=== PATIENT | male | born 1965 | race Caucasian/White ===

== ENCOUNTER 2016-09-21 13:22 | Outpatient (CLI) | payer MEDICARE, MEDICAID | END 2016-09-21 13:23 | disposition home or self-care (01) | DX: R50.9 Fever, unspecified (principal); R10.9 Unspecified abdominal pain ==

== ENCOUNTER 2016-09-23 11:36 | Outpatient (CLI) | payer MEDICARE, MEDICAID | END 2016-09-23 11:37 | disposition home or self-care (01) | DX: I10 Essential (primary) hypertension (principal); Z79.899 Other long term (current) drug therapy; Z11.4 Encounter for screening for human immunodeficiency virus [HIV]; E78.6 Lipoprotein deficiency; R61 Generalized hyperhidrosis; R50.9 Fever, unspecified | CPT/HCPCS: 36415; 80053; 80061; 84443; 85025; 87040; G0475 ==

== ENCOUNTER 2016-12-31 18:55 | Outpatient (CLI) | payer MEDICARE, MEDICAID | END 2016-12-31 18:56 | disposition critical access hospital (66) | LOC: EMS 18:55 | PROVIDERS: ATTEND Surgery | DX: S89.92XA Unspecified injury of left lower leg, initial encounter (principal); W01.10XA Fall on same level from slipping, tripping and stumbling with subsequent striking against unspecified object, initial encounter; Z91.81 History of falling | CPT/HCPCS: A0425; A0429 ==

== ENCOUNTER 2016-12-31 19:01 | Emergency (ER) | payer MEDICARE, MEDICAID ==
[2016-12-31 19:11] VITALS: BP 161/80
--- NOTE | 2016-12-31 19:51 | ED Physician Documentation ---
PD HPI BACK INJURY - Stated complaint Stated Complaint: GLF/BACK PN - History obtained from History obtained from: Patient, EMS - History of Present Illness Location: Left, Lower Type of injury: Fall Where injury occurred: Home Timing - onset: How many hours ago (1) Timing - duration: Hours (1) Timing - details: Abrupt onset Pain level max: 8 Pain level now: 0 Quality: Pain Improved by: Rest Worsened by: Moving, Palpating Associated symptoms: Other (tingling to the LLE) Similar symptoms before: Diagnosis (spina bifida) Recently seen: Not recently seen - Additional information Additional information: Patient states that he tripped and fell in the bathroom at home. Is normally unsteady on his feet. Does not use any assistive walking devices. States that the left leg was pinned underneath his buttocks and has been unable to fully extend the leg since that time. Review of Systems Constitutional: denies: Fever, Chills Skin: denies: Rash Musculoskeletal: denies: Neck pain, Back pain Neurologic: reports: Numbness (Initially in the left lower leg, now resolved). denies: Focal weakness, Confused, Altered mental status, Headache, Head injury, LOC PD PAST MEDICAL HISTORY - Past Medical History Past Medical History: Yes Cardiovascular: Hypertension Respiratory: None Neuro: None Endocrine/Autoimmune: None GI: None : Retention HEENT: None Psych: None Musculoskeletal: None, Other Derm: None Other Past Medical History: Spinabifi - Past Surgical History Past Surgical History: Yes HEENT: Tonsil/Adenoidectomy - Present Medications Home Medications: Ambulatory Orders Medication Instructions Recorded Confirmed Lisinopril 5 mg PO DAILY 02/26/16 02/26/16 HYDROcod/ACETAM 5/325 [[place] 5/325] 1 tab PO Q4HR PRN #14 tablet 02/29/16 - Allergies Allergies/Adverse Reactions: Allergies Allergy/AdvReac Type Severity Reaction Status Date / Time amoxicillin trihydrate * Allergy Unknown unknown Verified 02/26/16 01:53 [From Augmentin] bisacodyl Allergy Unknown unknown Verified 02/26/16 01:53 clarithromycin [From Biaxin] Allergy Unknown unknown Verified 02/26/16 01:53 levofloxacin [From Levaquin] Allergy Unknown unknown Verified 02/26/16 01:53 potassium clavulanate * Allergy Unknown unknown Verified 02/26/16 01:53 [From Augmentin] - Social History Does the pt smoke?: No Smoking Status: Never smoker Does the pt drink ETOH?: Yes Does the pt have substance abuse?: No - Immunizations Immunizations are current?: No Immunizations: Other immun not current - POLST Patient has POLST: No PD ED PE NORMAL - Vitals Vital signs reviewed: Yes - General General: Alert and oriented X 3, No acute distress, Well developed/nourished - HEENT HEENT: Atraumatic, PERRL, Moist mucous membranes, Pharynx benign - Neck Neck: Supple, no meningeal sign, No bony TTP - Cardiac Cardiac: RRR, Strong equal pulses - Respiratory Respiratory: No respiratory distress, Clear bilaterally - Abdomen Abdomen: Soft, Non tender - Back Back: No spinal TTP - Derm Derm: Warm and dry - Extremities Extremities: Other (Swelling to the left anterior knee. Deformity just superior to the patella. Unable to fully extend the leg. He is able to dorsiflex and plantar flex the foot. Neurovascularly intact. ACL, MCL, LCL, PCL appear intact.) - Neuro Neuro: Alert and oriented X 3, No motor deficit, No sensory deficit Results - Vitals Vitals: Vital Signs - 24 hr 12/31/16 19:05 Temperature 36.7 C Heart Rate 77 Respiratory 15 Rate Blood Pressure 161/80 H O2 Saturation 100 Oxygen O2 Source Room air - Rads (name of study) Left knee x-ray Radiology: Prelim report reviewed, EMP read contemporaneously, See rad report ( Soft tissue swelling. ) PD MEDICAL DECISION MAKING - ED course Complexity details: reviewed results, re-evaluated patient, considered differential, d/w patient, d/w sales and leasing consultant ED course: Patient is a 51-year-old male with spina bifida who fell at home today. No evidence of knee dislocation, no evidence of ligamentous injury, possible quadriceps tendon rupture? Discussed the case with orthopedics on-call, Dr. Jovel who recommends placing the patient in a knee immobilizer, a walker and following up with the Orthopedic clinic next week. The patient ambulated quite well with a walker and the knee immobilizer in place in the emergency department. He feels more stable in the brace. MRI is unavailable tonight. He will return if he worsens or is not doing well at home. Otherwise he will call orthopedics for an appointment on Tuesday. Patient counseled regarding signs and symptoms for which I believe and urgent re-evaluation would be necessary. Patient with good understanding of and agreement to plan and is comfortable going home at this time This document was made in part using voice recognition software. While efforts are made to proofread this document, sound alike and grammatical errors may occur. Patient declines pain medication here or for home. Patient does state that he is always somewhat unstable on his feet and this is unchanged tonight in the emergency department. Departure - Departure Disposition: Home, Self Care Clinical Impression: Quadriceps tendon rupture Qualifiers: Encounter type: initial encounter Laterality: left Qualified Code(s): S76.112A - Strain of left quadriceps muscle, fascia and tendon, initial encounter Condition: Good Instructions: ED Effusion Knee Follow-Up: [facility] [Provider Group] - Within 1 week (call for an appointment) Comments: Return if you worsen. Make sure to follow up with orthopedics for further care. Discharge Date/Time: 12/31/16 22:33
--- NOTE | 2016-12-31 20:52 | XRAY Preliminary Report ---
Exam: XR Knee 4 View LT IMPRESSION: Soft tissue swelling. [facility] SITE ID: [id number]
--- NOTE | 2016-12-31 20:55 | XRAY Report ---
EXAM: LEFT KNEE RADIOGRAPHY EXAM DATE: 12/31/2016 08:24 PM. CLINICAL HISTORY: Fall, knee pain. COMPARISON: None. TECHNIQUE: 4 views, including oblique views. FINDINGS: Bones: Hypertrophic calcifications arising from irregular proximal edge of patella, probably related to old or recurrent trauma. No acute fracture or other bone lesion. Joints: Joint spaces well-preserved. No effusion. Soft Tissues: Mild prepatellar soft tissue swelling. IMPRESSION: Soft tissue swelling. [facility] Referring Provider Line: [phone] SITE ID: [id number]
== END 2016-12-31 22:33 | disposition home or self-care (01) ==
LOC: EDUNIT# → ED 19:01
DX: S76.112A Strain of left quadriceps muscle, fascia and tendon, initial encounter (principal); Q05.9 Spina bifida, unspecified; W01.0XXA Fall on same level from slipping, tripping and stumbling without subsequent striking against object, initial encounter; Y92.002 Bathroom of unspecified non-institutional (private) residence as the place of occurrence of the external cause; I10 Essential (primary) hypertension
CPT/HCPCS: 99283

== ENCOUNTER 2017-01-06 11:57 | Outpatient (CLI) | payer MEDICARE, MEDICAID | END 2017-01-06 11:58 | disposition home or self-care (01) | LOC: LAB.R 11:57 | PROVIDERS: ATTEND Nurse Practitioner Primary Care | DX: M79.605 Pain in left leg (principal); R60.0 Localized edema | CPT/HCPCS: 85379 ==

== ENCOUNTER 2017-01-06 12:17 | Outpatient (CLI) | payer MEDICARE, MEDICAID ==
--- NOTE | 2017-01-06 17:05 | Ultrasound Report ---
LEFT LEG VENOUS DUPLEX: 01/06/2017 CLINICAL INDICATION: Leg pain. TECHNIQUE: Real-time sonographic vascular imaging was performed by the learning operations specialist through the left lower extremity utilizing both color flow and Doppler spectral analysis. Multiple jewelry sales representative [facility] images were saved for review. FINDINGS: A left lower extremity venous sonogram is performed revealing the common femoral, superfic ial femoral, profunda femoris, and popliteal veins to be adequately visualized without intraluminal d efects. There is normal venous compression, augmentation, phasicity, and spontaneity of venous flow. In the calf, the visualized more cephalad portions of posterior tibial and peroneal veins are gross ly compressible, without filling defects. IMPRESSION: NO EVIDENCE OF DEEP VENOUS THROMBOSIS. JOB #: [id number] EXT JOB #:[id number]
== END 2017-01-06 12:18 | disposition home or self-care (01) ==
LOC: DI 12:17
PROVIDERS: ATTEND Nurse Practitioner Primary Care
DX: M79.605 Pain in left leg (principal); R60.0 Localized edema
CPT/HCPCS: 85379

== ENCOUNTER 2017-01-13 13:55 | Outpatient (CLI) | payer MEDICARE, MEDICAID ==
--- NOTE | 2017-01-13 18:02 | MRI Report ---
EXAM: LEFT KNEE MRI WITHOUT CONTRAST EXAM DATE: 01/13/2017 03:06 PM. CLINICAL HISTORY: Injury of left quadriceps muscle. COMPARISON: 12/31/2016 and radiograph. TECHNIQUE: Multiplanar, multisequence T1-weighted and fluid-sensitive sequences of the knee without c ontrast. Other: None. FINDINGS: Bones: No fractures. There is marrow edema in the periphery of the medial femoral condyle, likely bon y contusion. The patella also has central bony contusion. Articular Cartilage: The central patellar cartilage demonstrates mild surface irregularity. The troch lear cartilage is intact. The tibiofemoral articular cartilage is intact. Medial Meniscus: The medial meniscus is intact. Lateral Meniscus: The lateral meniscus is intact. Cruciate Ligaments: The anterior and posterior cruciate ligaments are intact. Collateral Ligaments: There is some increased T2 signal in the proximal medial collateral ligament (s eries 401, image 15 with some surrounding edema. This is consistent with a grade 1 sprain. Lateral co llateral ligamentous structures are intact. Tendons: The quadriceps tendon is essentially completely torn. There are fibers distally that remain attached to the patella over a length of 1.2 cm. Just superior to that is a gap of approximately 8 mm . The medial vastus medialis fibers are from the patella in the transverse plane by approxi mately 9 mm as well. The patellar tendon is lax. The semimembranosus and popliteus tendons are unrema rkable. Musculature: There is edema in the vastus lateralis muscle. The medial gastrocnemius muscle demonstra gm moderate fatty atrophy. Other: A moderate effusion is present. No popliteal cyst. No loose bodies. The medial retinaculum is essentially torn. The lateral retinaculum remains intact. A large fluid collection anterior to the p atella contains debris. It measures 4.1 x 1.6 x 7.3 cm. It communicates with the joint space. IMPRESSION: 1. Complete tear of the quadriceps tendon. 2. Large prepatellar fluid collection that communicates with the knee joint. 3. Disruption of the medial retinaculum. 4. Grade 1 sprain of the medial collateral ligament. [facility] MUSCULOSKELETAL RADIOLOGY SECTION Referring Provider Line: [phone] SITE ID: [id number]
== END 2017-01-13 13:56 | disposition home or self-care (01) ==
LOC: DI 13:55
PROVIDERS: ATTEND Orthopaedic Surgery
DX: S76.192A Other specified injury of left quadriceps muscle, fascia and tendon, initial encounter (principal); S83.412A Sprain of medial collateral ligament of left knee, initial encounter; W01.0XXA Fall on same level from slipping, tripping and stumbling without subsequent striking against object, initial encounter; Q05.2 Lumbar spina bifida with hydrocephalus

== ENCOUNTER 2017-01-22 20:55 | Outpatient (CLI) | payer MEDICARE, MEDICAID | END 2017-01-22 20:56 | disposition critical access hospital (66) | LOC: EMS 20:55 | PROVIDERS: ATTEND Surgery | DX: M79.671 Pain in right foot (principal) | CPT/HCPCS: A0425; A0429 ==

== ENCOUNTER 2017-01-22 21:00 | Emergency (ER) | payer MEDICARE, MEDICAID ==
[2017-01-22 21:04] VITALS: BP 140/80
[2017-01-22] MEDS ORDERED: SULFAMETH/TRIMETH DS 800/160 MG TABLET PO STA (21:43)
[2017-01-22] MEDS ORDERED: CEPHALEXIN 250 MG CAPSULE PO STA (21:43)
[2017-01-22] MEDS ORDERED: CEPHALEXIN 250 MG Prepack 8 PO ONE ×2 (21:45→21:51)
--- NOTE | 2017-01-22 21:46 | ED Physician Documentation ---
PD HPI SKIN - Stated complaint Stated Complaint: CELLULITIS FOOT - Chief complaint Chief Complaint: Ext Problem - History obtained from History obtained from: Patient, Friend - History of Present Illness Timing - onset: Yesterday Timing - details: Gradual onset, Still present Location: RLE Quality / character: Painful, Discolored Similar symptoms before: Work up / diagnostics, Treatment Recently seen: Not recently seen - Additional information Additional information: patient is a 51 year old male with a history of spina bifida who is presenting to the emergency department for right foot redness. patient states that it started yesterday but got progressively worse today. patient denies nausea, vomiting fever or chills. Review of Systems Constitutional: denies: Fever, Chills Eyes: denies: Decreased vision, Irritation Ears: reports: Reviewed and negative Nose: reports: Reviewed and negative Throat: denies: Oral lesions / sores, Sore throat Cardiac: denies: Chest pain / pressure Respiratory: denies: Cough, Wheezing GI: denies: Abdominal Pain, Nausea, Vomiting : denies: Dysuria, Frequency Skin: reports: Rash. denies: Laceration (s), Bite / sting Musculoskeletal: reports: Extremity pain, Extremity swelling Neurologic: denies: Generalized weakness, Headache, Head injury, LOC Immunocompromised: reports: Immunocompromised PD PAST MEDICAL HISTORY - Past Medical History Past Medical History: Yes Cardiovascular: Hypertension Respiratory: None Neuro: None Endocrine/Autoimmune: None GI: None : Retention HEENT: None Psych: None Musculoskeletal: None, Other Derm: None Other Past Medical History: spina bifida, gerd - Past Surgical History Past Surgical History: Yes HEENT: Tonsil/Adenoidectomy - Present Medications Home Medications: Ambulatory Orders Medication Instructions Recorded Confirmed Lisinopril 5 mg PO DAILY 02/26/16 01/22/17 Cephalexin [Keflex] 500 mg PO Q6H 7 Days 01/22/17 Omeprazole [PriLOSEC] 1 tab ORAL DAILY 01/22/17 01/22/17 Sulfamethox/Trimeth 800/160 1 each PO BID #14 tablet 01/22/17 [Bactrim Ds 800/160] - Allergies Allergies/Adverse Reactions: Allergies Allergy/AdvReac Type Severity Reaction Status Date / Time amoxicillin trihydrate * Allergy Unknown unknown Verified 01/22/17 21:04 [From Augmentin] bisacodyl Allergy Unknown unknown Verified 01/22/17 21:04 clarithromycin [From Biaxin] Allergy Unknown unknown Verified 01/22/17 21:04 levofloxacin [From Levaquin] Allergy Unknown unknown Verified 01/22/17 21:04 potassium clavulanate * Allergy Unknown unknown Verified 01/22/17 21:04 [From Augmentin] - Social History Does the pt smoke?: No Smoking Status: Never smoker Does the pt drink ETOH?: Yes Does the pt have substance abuse?: No - Immunizations Immunizations are current?: No Immunizations: Other immun not current - POLST Patient has POLST: No PD ED PE NORMAL - Vitals Vital signs reviewed: Yes (within normal limits) - General General: Alert and oriented X 3, Well developed/nourished - HEENT HEENT: Atraumatic, PERRL - Cardiac Cardiac: RRR, No murmur - Respiratory Respiratory: No respiratory distress - Abdomen Abdomen: Non distended - Derm Derm: Other (rash as described below) - Neuro Neuro: Alert and oriented X 3, Normal speech - Psych Psych: Normal mood, Normal affect PD ED PE EXPANDED - Extremities Extremities: Right foot (erythematous cellulitic rash of right lower extremity, 5 cm by 8cm) Results - Vitals Vitals: Vital Signs - 24 hr 01/22/17 21:01 Temperature 36.8 C Heart Rate 68 Respiratory 18 Rate Blood Pressure 140/80 H O2 Saturation 100 Oxygen O2 Source Room air PD MEDICAL DECISION MAKING - ED course Complexity details: reviewed old records, re-evaluated patient, considered differential, d/w patient, d/w family ED course: Patient was seen and examined at bedside. patient was well appearing and in no acute distress. Patient's findings were consistent with cellulitis but there were no signs of systemic disease. Patient was appropriate for a trial of oral antibiotics. Patient was treated with his first dose of medications and was stable for discharge [facility] outpatient follow up. Departure - Departure Disposition: 01 Home, Self Care Clinical Impression: Cellulitis Condition: Good Instructions: Cellulitis Dc Follow-Up: primary,care provider [Other] - Within 1 week (follow up with your pmd in one week for a wound check) Prescriptions: Sulfamethox/Trimeth 800/160 [Bactrim Ds 800/160] 1 each PO BID #14 tablet Cephalexin [Keflex] 500 mg PO Q6H 7 Days Comments: Your symptoms today are being caused by cellulitis which is an infection of your skin. You should take your entire course of antibiotics. You should take it with yogurt or probiotics to help with the GI side effects. You should monitor the size of the infection. You should follow up with your pmd for a wound check but you can return to the emergency department at any time for new, worsening or uncontrollable symptoms. Discharge Date/Time: 01/22/17 22:18
[2017-01-22] MEDS ORDERED: SULFAMETH/TRIMETH DS 800/160 MG TABLET PO ONE (21:49)
[2017-01-22] MEDS ORDERED: CEPHALEXIN 250 MG CAPSULE PO ONE (21:49)
== END 2017-01-22 22:18 | disposition home or self-care (01) ==
LOC: ED 21:00
DX: L03.115 Cellulitis of right lower limb (principal); I10 Essential (primary) hypertension
CPT/HCPCS: 99283; A9270